=== PATIENT | male | born 1995 | race African-American/Black ===

== ENCOUNTER 2021-10-06 23:20 | Emergency (ER) | payer BC, SELFPAY ==
[2021-10-06 23:25] VITALS: BP 150/75; PULSE 69; RESP 18; TEMP 36.6; O2SAT 98
--- NOTE | 2021-10-06 23:33 | ED.GENADULT ---
HPI - General Adult General Chief complaint: Unspecified Stated complaint: infected in grown toe nail Time Seen by Provider: 10/06/21 23:21 History of Present Illness HPI narrative: 25-year-old male presents emergency room secondary pain to his right middle toe. Is been going on for several days. Is mainly to the lateral aspect. Has some drainage coming from the area. It hurts right around the lateral aspect of the toenail. Denies any trauma. No chills or fevers. He is not diabetic. No other medical problems. Related Data Allergies Allergy/AdvReac Type Severity Reaction Status Date / Time No Known Allergies Allergy Unverified 05/28/14 16:27 Procedure: Digital block was performed to the right third toe using 1% lidocaine without epinephrine using a total of 7 mL. Allowed approximately 10 minutes for the anesthesia to take effect he had complete anesthesia of the toenail afterwards. Using hemostats was able get up on of the toe now from nail bed and able to remove the toenail without any difficulty. There is no remaining foreign bodies noted where the ingrown toenail was present. Patient tolerated procedure well nonadherent dressing was applied. Review of Systems Review of Systems: CONSTITUTIONAL: Denies fever, chills, or sweats. EYES: Denies visual changes, redness, or discharge. ENT: Denies rhinorrhea, congestion, sore throat, or otalgia. CARDIOVASCULAR: Denies chest pain, palpitations, or edema. RESPIRATORY: Denies cough or dyspnea. GASTROINTESTINAL: Denies abdominal pain, nausea, vomiting, or diarrhea. GENITOURINARY: Denies dysuria or hematuria. SKIN: Denies rash or itching. MUSCULOSKELETAL: Pain to the right middle toe as noted in HPI. NEUROLOGIC: Denies headache, numbness, or weakness. PSYCHIATRIC: Denies anxiety or depression. PMFSH Past Medical History Medical History No pertinent past medical history Surgical History Surgical History No pertinent past surgical history Social History Social History Additional smoking assessment comments: Smokes marijuana Exam Narrative: APPEARANCE: Well appearing, no pain or distress, well-nourished. Head normocephalic and atraumatic. EYES: PERRLA/EOMI, conjunctivae very clear. NECK: Supple. No adenopathy, no masses. RESPIRATORY: Airway patent, respirations nonlabored. Clear to auscultation bilaterally, no rales, rhonchi, wheezing. CARDIOVASCULAR: Regular rate and rhythm without murmurs, rubs, or gallops. ABDOMINAL: Soft, nontender, nondistended, no hepatosplenomegaly Musculoskeletal: Patient noted to have ingrown toenail to the right middle toe on the lateral aspect. Noted to be swollen with some purulent drainage coming from the area. NEURO: Alert. Cranial nerves II through XII intact. Normal gait. Good coordination. Nonfocal examination. SKIN:: Warm, dry. Normal Color PSYCHIATRIC: Normal affect/mood, normal interaction Course Vital Signs Vital signs: Vital Signs Temperature 98 F 10/06/21 23:25 Pulse Rate 69 10/06/21 23:25 Respiratory Rate 18 10/06/21 23:25 Blood Pressure 150/75 H 10/06/21 23:25 Pulse Oximetry 98 10/06/21 23:25 Oxygen Delivery Room Air 10/06/21 23:25 Temperature 98 F 10/06/21 23:25 Pulse Rate 69 10/06/21 23:25 Respiratory Rate 18 10/06/21 23:25 Blood Pressure 150/75 H 10/06/21 23:25 Pulse Oximetry 98 10/06/21 23:25 Oxygen Delivery Room Air 10/06/21 23:25 Medical Decision Making Vital Signs Vital Signs: Vital Signs Temperature 98 F 10/06/21 23:25 Pulse Rate 69 10/06/21 23:25 Respiratory Rate 18 10/06/21 23:25 Blood Pressure 150/75 H 10/06/21 23:25 Pulse Oximetry 98 10/06/21 23:25 Oxygen Delivery Room Air 10/06/21 23:25 Temperature 98 F 10/06/21 23:25 Pulse Rate 69 10/06/21 23:25 Respiratory Rate 18
[2021-10-06] MEDS: LIDOCAINE HCL 1% LOCAL INJ 20 ML VIAL 10 ML INFILTRATE (23:40)
[2021-10-07 00:12] VITALS: BP 126/55; PULSE 78; RESP 16; O2SAT 99
== END 2021-10-07 00:13 | disposition home or self-care (01) ==
PROVIDERS: Emergency Provider Emergency Medicine
DX: L60.0 Ingrowing nail (principal)
CPT/HCPCS: 11730; 99282

== ENCOUNTER 2022-09-16 23:15 | Emergency (ER) | payer OTHER, SELFPAY ==
[2022-09-16 23:34] VITALS: BP 127/59; PULSE 58; RESP 18; TEMP 36.3; O2SAT 99
--- NOTE | 2022-09-17 01:43 | ED.GENADULT ---
HPI - General Adult General Chief complaint: Back Pain/Injury Stated complaint: back pain today to right side Time Seen by Provider: 09/17/22 00:42 History of Present Illness HPI narrative: 26-year-old male presented to the emergency department for evaluation of lower back pain on the right. Patient states he has been sleeping on a futon that he believes may be causing some of his symptoms. Patient has not taken any Tylenol ibuprofen for pain control. Patient denies any numbness or radiation of the pain down his leg. Patient denies any loss of bowel or bladder control. Patient reports he did do some stretching and that seemed to help some of his symptoms. Related Data Allergies Allergy/AdvReac Type Severity Reaction Status Date / Time No Known Allergies Allergy Verified 09/17/22 00:38 Review of Systems Review of Systems: All systems reviewed & are unremarkable except as noted in HPI and below PMFSH Past Medical History Medical History No pertinent past medical history Surgical History Surgical History No pertinent past surgical history Social History Social History Additional smoking assessment comments: Smokes marijuana Exam Narrative: APPEARANCE: Well appearing, no pain, no distress, well-nourished. HEAD: normocephalic, atraumatic. EYES: PERRLA/EOMI, conjunctivae clear. NOSE: Normal no drainage NECK: Supple. No adenopathy, no masses. RESPIRATORY: Airway patent, respirations nonlabored. Clear to auscultation bilaterally, no rales, rhonchi, wheezing. CARDIOVASCULAR: Regular rate and rhythm without murmurs rubs or gallops. ABDOMINAL: Soft, nontender, nondistended, normal bowel sounds MUSCULOSKELETAL: Moves all extremities. Right lower back tenderness to palpation. No evidence of sciatica on physical exam NEURO: Alert. Cranial nerves II through XII intact. Grossly intact SKIN: Warm, dry. Normal Color Course Course Emergency Course: 26-year-old male with back pain. Patient was advised on lower back stretches. Patient was treated with IM Toradol and provided Flexeril in the ED. Patient was also prescribed Flexeril for home. Patient was educated on reasons to return the emergency department. All questions and concerns were addressed. Vital Signs Vital signs: Vital Signs Temperature 97.3 F L 09/16/22 23:34 Pulse Rate 58 L 09/16/22 23:34 Respiratory Rate 18 09/16/22 23:34 Blood Pressure 127/59 L 09/16/22 23:34 Pulse Oximetry 99 09/16/22 23:34 Oxygen Delivery Room Air 09/16/22 23:34 Temperature 97.3 F L 09/16/22 23:34 Pulse Rate 75 09/17/22 01:57 Respiratory Rate 18 09/17/22 01:57 Blood Pressure 116/59 L 09/17/22 01:57 Pulse Oximetry 98 09/17/22 01:57 Oxygen Delivery Room Air 09/16/22 23:34 Medical Decision Making Vital Signs Vital Signs: Vital Signs Temperature 97.3 F L 09/16/22 23:34 Pulse Rate 58 L 09/16/22 23:34 Respiratory Rate 18 09/16/22 23:34 Blood Pressure 127/59 L 09/16/22 23:34 Pulse Oximetry 99 09/16/22 23:34 Oxygen Delivery Room Air 09/16/22 23:34 Temperature 97.3 F L 09/16/22 23:34 Pulse Rate 75 09/17/22 01:57 Respiratory Rate 18 09/17/22 01:57 Blood Pressure 116/59 L 09/17/22 01:57 Pulse Oximetry 98 09/17/22 01:57 Oxygen Delivery Room Air 09/16/22 23:34 Discharge Plan Discharge Clinical Impression: Back pain Patient Disposition: Home, Self-Care Condition: Stable Instructions: Antibiotic Form, Back Pain (ED) Additional Instructions: Ibuprofen scheduled as directed for back pain. Tylenol as needed for additional pain control. Flexeril for muscle spasm. Back stretches as directed. Have close follow-up with your primary care physician. If you have any worsening symptoms then please call or return to the Emergency
[2022-09-17] MEDS: CYCLOBENZAPRINE HCL 10 MG TABLET PO (01:50)
[2022-09-17] MEDS: KETOROLAC 30 MG/ML VIAL (*BKC) IM (01:50)
[2022-09-17 01:57] VITALS: BP 116/59; PULSE 75; RESP 18; O2SAT 98
== END 2022-09-17 01:59 | disposition home or self-care (01) ==
PROVIDERS: Emergency Provider Emergency Medicine
DX: M54.50 Low back pain, unspecified (principal)
CPT/HCPCS: 96372; 99283; A9270; J1885